=== PATIENT | female | born 2000 | race Caucasian/White ===

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

== ENCOUNTER 2025-01-12 14:31 | Emergency (ER) | payer SELFPAY ==
[2025-01-12 14:37] VITALS: BP 156/93; PULSE 79; RESP 17; TEMP 36.3; O2SAT 94; BMI 56.7
[2025-01-12 15:18] LABS: HCG Qualitative Urine. Negative (Negative)
[2025-01-12 15:22] LABS: Bilirubin Urine Negative (Negative); Blood Urine Negative (Negative); Glucose Urine UA Negative (Normal); Ketones Urine Negative (Negative); Leukocyte Esterase Urine Negative (Negative); Nitrate Urine Negative (Negative); Protein Urine Negative (Negative); Specific Gravity, Urine 1.016 (1.005-1.030); Urine Appearance Clear (CLEAR); Urine Color Yellow (Yellow); Urobilinogen Urine 0.2 mg/dL (Negative)
[2025-01-12 15:24] LABS: Add Urine Microscopic? YES; Bacteria Urine Trace /hpf; Hyaline Casts Urine 0-4 /lpf; RBC Urine 0-2 /hpf (0-2); Squamous Epithelial Cell Urine 0-5 /hpf (0-5); WBC Urine 0-5 /hpf (0-5)
[2025-01-12 15:40] LABS: Add Urine Culture? No
--- NOTE | 2025-01-12 16:28 | ED_ITS ---
HPI - Female Genitourinary General: Chief complaint: Urogenital-Female Stated complaint: kidney pain Time Seen by Provider: 01/12/25 14:56 History of Present Illness: Patient is a 24-year-old female with PCOS presents after [facility] 01/18 diagnosed with ureterolithiasis and pyuria, compliant to antibiotics, completed course, no LMP since PCOS, patient is anovulatory, that presents for follow-up. She did strain her urine, did not note any passage of stone. Denies any nausea, vomi ting, or flank pain. No symptoms today. Associated symptoms: Deny abdominal pain or nausea Related Data Previous Rx's ?Medication ?Instructions ?Recorded lamotrigine 25 mg tablet (Lamictal) 25 mg PO .COMPLEX 14 days #46 tabs 12/22/24 Allergies Allergy/AdvReac Type Severity Reaction Status Date / Time metoclopramide (From Reglan) Allergy rash Verified 12/22/24 09:35 Penicillins Allergy rash Verified 12/22/24 09:35 Sulfa (Sulfonamide Allergy rash Verified 12/22/24 09:35 Antibiotics) Review of Systems General: Reports: 10 or more systems reviewed and unremarkable except in HPI and below Const: Denies: fever(s) or chills ENMT: Denies: throat pain Card: Denies: chest pain or palpitations Resp: Denies: dyspnea or productive cough GI: Denies: abdominal pain, nausea or vomiting : Denies: flank pain or difficulty voiding Skin/Breast: Denies: rash or pruritus PFSH ED PFSH: Medical History (Updated 01/12/25 @ 16:31 by TISH Romero) JADE (generalized anxiety disorder) Psychiatric care No pertinent past medical history neghx: htn,dm,thyroid,dvt/pe Surgical History No pertinent past surgical history Family History Mother Diabetes Hypertension Cervical cancer Grandmother Diabetes Maternal grandmother Breast cancer Maternal great grandmother Hypertension Maternal grandmother Family/Other Breast cancer Maternal aunt Denies family history of Colon cancer Ovarian cancer Hyperlipidemia Uterine cancer Stroke Social History Alcohol intake: never Substance/Drug Use: never Additional social history: - Tobacco use: Denies Alcohol use: Denies Drug use: Denies Course Vital Signs: Vital signs: Vital Signs Temperature 97.3 F L 01/12/25 14:37 Pulse Rate 79 01/12/25 14:37 Respiratory Rate 17 01/12/25 14:37 Blood Pressure 156/93 01/12/25 14:37 Pulse Oximetry 94 01/12/25 14:37 Oxygen Delivery Me thod Room Air 01/12/25 14:37 MDM - Female Medical Decision Making Patient is a pleasant 24-year-old female without established primary care that is following up after diagnosis of left ureterolithiasis a different facility with association pyuria 1 week ago. Urine analysis is benign with minimal RBCs. There is no reason to follow this up with additional radiographic evidence. Case management will be asked to assist with helping find pcp for additioanl f/ up. Patient/mother's questions were answered to their satisfaction. Lab Data Laboratory Results HCG, Qual Negative (Negative) 01/12/25 15:06 Urine Color Yellow (Yellow) 01/12/25 15:06 Urine Appearance Clear (CLEAR) 01/12/25 15:06 Urine pH 6.0 (5-7) 01/12/25 15:06 Ur Specific [place] 1.016 (1.005-1.030) 01/12/25 15:06 Urine Protein Negative (Negative) 01/12/25 15:06 Urine Glucose (UA) Negative (Normal) 01/12/25 15:06 Urine Ketones Negative (Negative) 01/12/25 15:06 Urine Blood Negative (Negative) 01/12/25 15:06 Urine Nitrate Negative (Negative) 01/12/25 15:06 Urine Bilirubin Negative (Negative) 01/12/25 15:06 Urine Urobilinogen 0.2 mg/dL (Negative) 01/12/25 15:06 Ur Leukocyte Esterase Negative (Negative) 01/12/25 15:06 Urine RBC 0-2 /hpf (0-2) 01/12/25 15:06 Urine WBC 0-5 /hpf (0-5) 01/12/25 15:06 Ur Squamous Epith Cells 0-5 /hpf (0-5) 01/12/25 15:06 Amorphous Sediment Not Reportable 01/12/25 15:06 Urine Bacteria Trace /hpf (NONE) 01/12/25 15:06 Hyaline Casts 0-4 /lpf H 01/12/25 15:06 No radiology studies performed this visit Discharge Plan Discharge Patient Disposition: Home Clinical Impression: Unspecified renal colic Condition: Stable Prescriptions: No Action lamotrigine [Lamictal] 25 mg tablet 25 mg PO .COMPLEX 14 Days Qty: 46 0RF Rx Instructions: 25 mg orally daily for 2 weeks and then increase to 50mg daily. Discharge Orders: Discharge ED (Routine); Ordered 01/12/25 Ordered By: Carrie Vuong Discharge Diet: Usual diet Discharge Activity: Resume usual activity Patient Instructions: Abdominal Pain (ED) Activity Restrictions/Additional Instructions: As we discussed, case management will look for you a primary care provider. It would be advised to follow-up with urology and stone clinic to avoid future issues such as this. This can be done with your primary care provider. Today, no red blood cells were noted of concern or change in your urine that needed to be addressed. Return to ED for further issues. Print Language: Congolese Coding Level of Care Code ED Storage Solutions Architect for Melissa Salazar
== END 2025-01-12 16:38 | disposition home or self-care (01) ==
PROVIDERS: Emergency Provider Physician Assistant
DX: N23 Unspecified renal colic (principal)
CPT/HCPCS: 81001; 81025; 99283

== ENCOUNTER 2025-02-17 10:31 | Outpatient (CLI) | payer MEDICAID, SELFPAY | END 2025-02-17 10:32 | disposition home or self-care (01) | LOC: LAB 10:37 | PROVIDERS: PCP Family Medicine; Visit Provider Family Medicine | DX: E28.2 Polycystic ovarian syndrome (principal); E66.01 Morbid (severe) obesity due to excess calories; Z68.43 Body mass index [BMI] 50.0-59.9, adult; E55.9 Vitamin D deficiency, unspecified | CPT/HCPCS: 80053; 80061; 82306; 83036; 83525; 84403; 84439; 84443; 85025 ==

== ENCOUNTER 2025-08-03 13:43 | Outpatient (CLI) | payer MEDICAID, SELFPAY ==
[2025-08-03 14:50] LABS: Alanine Aminotransferase 27 U/L (0-33); Albumin Level 4.1 g/dL (3.5-5.2); Alkaline Phosphatase 54 U/L (35-105); Anion Gap 19.0 (5-19); Aspartate Amino Transferase 27 U/L (0-32); Blood Urea Nitrogen 10 mg/dL (6-20); Calcium 9.7 mg/dL (8.5-10.5); Carbon Dioxide 21 mmol/L (22-29); Chloride 103 mmol/L (98-107); Globulin 3.3 g/dL (1.3-4.6); Glucose 137 mg/dL (65-115); Osmolality Calculated 289 mOsm/kg (285-295); Potassium 4.0 mmol/L (3.5-5.1); Sodium 139 mmol/L (136-145); Total Protein 7.4 g/dL (6.6-8.7)
[2025-08-04 08:09] LABS: Insulin ( Reference Lab Test) 294.0 uIU/mL
== END 2025-08-03 13:44 | disposition home or self-care (01) ==
LOC: LAB 13:44
PROVIDERS: PCP Family Medicine; Visit Provider Family Medicine
DX: E28.2 Polycystic ovarian syndrome (principal); Z13.6 Encounter for screening for cardiovascular disorders; E88.819 Insulin resistance, unspecified; E55.9 Vitamin D deficiency, unspecified; R79.89 Other specified abnormal findings of blood chemistry
CPT/HCPCS: 36415; 80053; 82306; 83525; 84403